=== PATIENT | female | born 1990 | race Caucasian/White ===

== ENCOUNTER 2018-08-22 07:36 | Outpatient (CLI) | payer BC ==
--- NOTE | 2018-08-22 13:24 | RAD ---
ESOPHOGRAM Date: 08-22-18 History: Globus sensation. Patient has palpable sensation within the lower neck. FINDINGS: Hose Operator chest x-ray: Cardiac silhouette and pulmonary vasculature are within normal limits. The lungs are clear. Osseous s tructures are intact. Double contrast esophagram was performed in usual fashion. The esophagus has a normal appearance with out evidence of mucosal irregularity or focal area of narrowing. A 12.5 mm barium tablet was administ ered during the exam which traversed the GE junction, again without hold up. There is no evidence of hiatal hernia. No gastroesophageal reflux was demonstrated during the exam. Normal esophageal perista lsis is noted. IMPRESSION: Normal esophogram. A 12.5 mm barium tablet also traverses the esophagus including GE junction without holdup. POS: [facility]
== END 2018-08-22 07:37 | disposition home or self-care (01) ==
LOC: RAD 07:36
PROVIDERS: ATTEND Internal Medicine Gastroenterology
DX: K21.9 Gastro-esophageal reflux disease without esophagitis (principal); F45.8 Other somatoform disorders
CPT/HCPCS: 74220